=== PATIENT | male | born 1960 | race Caucasian/White ===

== ENCOUNTER 2017-07-06 19:34 | Emergency (ER) | payer OTHER ==
[~2017-07-06] VITALS: Ht 172.7 cm; Wt 84.0 kg
[2017-07-06 19:36] VITALS: Ht 172.7 cm; Wt 84.0 kg
--- NOTE | 2017-07-06 20:08 | DIAGNOSTIC IMAGING REPORT ---
RIGHT ANKLE MIN 3 VIEWS ROUTINE CLINICAL HISTORY: R ankle pain Right trauma. Pain. COMPARISON: None. DISCUSSION: Oblique fracture distal fibular shaft. Ankle mortise is aligned anatomically. All remaining osseous structures are unremarkable. Soft tissue edema over the lateral malleolus. IMPRESSION: Nondisplaced oblique fracture distal fibula. The above report was generated using voice recognition software. It may contain grammatical, syntax or spelling errors. Electronically signed by: Antwon Celestin M.D. 07/06/2017 8:07 PM Dictated Date/Time: 07/06/2017 8:07 PM
[2017-07-06] MEDS ORDERED: OXYC1TAB3 PO (20:19)
[2017-07-06] MEDS ORDERED: OXYCODONE IR HOME PACK PO ONE (20:30)
--- NOTE | 2017-07-06 20:43 | EMERGENCY ROOM VISIT NOTE ---
History First contact with patient: 19:38 Chief Complaint: ANKLE PAIN Stated Complaint: HURT R ANKLE History of Present Illness The patient is a 56 year old male who presents to the Emergency Room with complaints of right ankle pain after twisting his ankle today walking a deer trail with a backpack full of corn. He reports that his left foot slipped on a slippery surface, and he fell onto his back, twisting his right ankle. The patient reports that he had to walk a considerable distance to his truck. The patient drove here from [place], [place] for evaluation. He currently denies any paresthesias or numbness of the right foot or toes. He denies any other injury, including head injury, neck pain, back pain or other extremity injuries. He rates his discomfort a 2 out of 10 on my exam. Review of Systems 10 system review was performed and was negative except for pertinent positives and negatives as indicated in history of present illness Past Medical/Surgical History Medical Problems: (1) Kidney stones Surgical Problems: (1) No history of previous surgery Family History FH: diabetes mellitus FH: heart disease FH: lung disease Social History Smoking Status: Never Smoker Alcohol Use: none Marital Status: Occupation Status: employed Current/Historical Medications Scheduled PRN Oxycodone Ir (Roxicodone Ir), 1-2 TAB PO Q4H PRN for Pain Physical Exam Vital Signs Date Time Temp Pulse Resp B/P (MAP) Pulse Ox O2 Delivery O2 Flow Rate FiO2 07/06/17 19:36 36.4 84 18 128/74 98 Room Air Physical Exam CONSTITUTIONAL: Healthy and well nourished. Alert and oriented X 3 with positive affect. HEENT: Normocephalic, atraumatic. Pupils equal, round and reactive. NECK: Full active range of motion without discomfort. MUSCULOSKELETAL: Examination shows diffuse edema about the right ankle. No open wounds. The patient has no significant tenderness to the dorsal midfoot, calcaneus or Achilles tendon. Pedal pulses are intact. INTEGUMENTARY: No rash or other significant dermatologic conditions noted. NEUROLOGIC: Right foot and toes are sensory intact. Medical Decision & Procedures ER Provider Diagnostic Interpretation: My interpretation of right ankle x-rays shows an oblique fracture of the distal fibula at the level of the ankle mortise. Radiologist report is as follows: RIGHT ANKLE MIN 3 VIEWS ROUTINE CLINICAL HISTORY: R ankle pain Right trauma. Pain. COMPARISON: None. DISCUSSION: Oblique fracture distal fibular shaft. Ankle mortise is aligned anatomically. All remaining osseous structures are unremarkable. Soft tissue edema over the lateral malleolus. IMPRESSION: Nondisplaced oblique fracture distal fibula. ED Course Patient history and physical exam were performed. Nurse's notes were reviewed. Vital signs were reviewed and normal. The patient refused any analgesics on initial exam. X-rays of the right ankle shows a nondisplaced oblique fracture of the distal fibula at the level of the tibiotalar joint. A posterior Ortho- Glass splint and crutches were applied. Neurovascular check after splint placement was normal. The patient was provided a home pack and prescription for OxyIR 5 mg as needed for breakthrough pain. He was encouraged to alternate ibuprofen and Tylenol for baseline pain relief. Ice and elevation for swelling. No weight on splint. The patient will follow-up with Dr. Stuart for further reevaluation and management. The patient voiced understanding of all discharge instructions, and rated his pain a 4 out of 10 at the time of discharge. Medical Decision [place] Drug Monitoring Program Search Results: patient reviewed within database, no issues identified Medication Reconcilliation Current Medication List: was personally reviewed by fl Blood Pressure Screening Patient's blood pressure: Normal blood pressure Impression Primary Impression: Closed fracture of right distal fibula Departure Information Prescriptions Oxycodone Ir (Roxicodone Ir) 5 Mg Tab 1-2 TAB PO Q4H Y for Pain, #15 TAB For Initial Treatment Prov: Ilir Hernandez PA 07/06/17 Referrals Mirian Bender M.D. (PCP) Patient Instructions My [facility] Problem Qualifiers Primary Impression: Closed fracture of right distal fibula Encounter type: initial encounter Fracture morphology: other fracture Qualified Codes: S82.831A - Other fracture of upper and lower end of right fibula, initial encounter for closed fracture
[2017-07-06 21:00] VITALS: BP 117/78; PULSE 74; TEMP 36.4; O2SAT 96
== END 2017-07-06 21:01 | disposition home or self-care (01) ==
LOC: C.EDB 19:36 → C.EDD 21:01
DX: S82.401A Unspecified fracture of shaft of right fibula, initial encounter for closed fracture (principal); W01.0XXA Fall on same level from slipping, tripping and stumbling without subsequent striking against object, initial encounter; Z87.442 Personal history of urinary calculi; Z83.3 Family history of diabetes mellitus; Z82.49 Family history of ischemic heart disease and other diseases of the circulatory system